=== PATIENT | female | born 1985 | race Hispanic/Latino ===

== ENCOUNTER 2018-06-17 17:57 | Emergency (ER) | payer SELFPAY ==
[2018-06-17] MEDS ORDERED: Adacel (T-DAP) 0.5 ML VIAL ONE (18:04)
[2018-06-17] MEDS ORDERED: Piperacillin/Tazobactam 3.375 GM VIAL ONE (18:04)
[2018-06-17] MEDS ORDERED: Ondansetron HCl/PF 4 MG/2 ML Vial ONE ×2 (18:04→18:10)
[2018-06-17] MEDS ORDERED: Ketamine 50 MG/ML VIAL ONE (18:16)
[2018-06-17] MEDS ORDERED: Midazolam HCl 2 mg/2 ml Vial ONE (18:17)
[2018-06-17 18:25] LABS: Hemoglobin 10.2 g/dL (12.0-16.0); Mean Corpuscular HGB CONC 35.4 g/dL (32.0-36.0); Mean Corpuscular Hemoglobin 25.1 pg (27.0-31.0); Mean Corpuscular Volume 70.9 fL (78.0-98.0); Mean Platelet Volume 7.5 fL (7.4-10.4); Platelet Count 368 thou/uL (130-400); RBC Distribution Width 13.4 % (11.5-14.5); Red Blood Cell (RBC) Count 4.07 mill/uL (4.20-5.40); White Blood Cell (WBC) Count 15.4 thou/uL (4.8-10.8)
[2018-06-17 18:26] LABS: ALT (SGPT) 9 U/L (8-55); AST (SGOT) 11 U/L (5-34); Albumin 4.3 g/dL (3.5-5.0); Alkaline Phosphatase 85 U/L (40-150); Anion Gap 18 mmol/L (10-20); BHCG - Serum Negative (NEGATIVE); BUN (Urea Nitrogen) 11 mg/dL (7.0-18.7); Bilirubin, Total 0.4 mg/dL (0.2-1.2); Calc. Creatinine Clearance 0 mL/min (70-130); Calcium 9.3 mg/dL (7.8-10.44); Carbon Dioxide 20 mmol/L (22-29); Chloride 107 mmol/L (98-107); Estimated GFR-MDRD Greater than 90; Globulin 3.9 g/dL (2.4-3.5); Glucose 163 mg/dL (70-105); Potassium 3.8 mmol/L (3.5-5.1); Pregs Control Background? CLEAR/WHITE (CLR/WHITE); Pregs Control Bar Appear? YES (CONTROL BAR); Protein, Total 8.2 g/dL (6.0-8.3); Sodium 141 mmol/L (136-145)
[2018-06-17 18:29] LABS: Eosinophils 3 % (0-10); Lymphocytes 36 % (21-51); MDiff Complete? YES; Microcytosis MODERATE=15-30 cells (100X) (0-5/hpf); Monocytes 6 % (0-10); Neutrophil 50 % (42-75); Reactive Lymphocytes 4 % (0-10)
--- NOTE | 2018-06-17 18:31 | CT ---
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 FINDINGS: There is nodular thickening seen right of midline involving anterior falx best seen on images 31, 30, 29, 28, 27 and 26, series 2 suspicious for a small subdural hematoma. Small amount of pneumocephalus is seen along the anterior aspect of the right frontal lobe. No underlying contusion is evident. Sep tony pellucidum and third ventricle are midline. There is exophthalmos involving the right globe with poor definition of the right orbital nerve suspicious for transection; however, extensive hematoma is seen within the retrobulbar space. There is prominent tension on the extraocular muscles. The right lacrimal gland has also been ejected from the orbital vault. There is extensive gas within the right orbit. IMPRESSION: 1. Small, anterior, parafalcine subdural hematoma. 2. Small amount of pneumocephalus involving the anterior right cranial fossa. 3. Traumatic exophthalmos of the right globe with the globe and the right lacrimal gland ejected from the orbital vault. The optic nerve is poorly seen and may be related to prominent retrobulbar h ematoma; however, optic nerve transection is not excluded. 4. Neurosurgical and ophthalmological consultation is recommended. Findings called to Dr. Clements at 6:20 p.m. on 06/17/18. Code CR POS: JOHN
--- NOTE | 2018-06-17 18:39 | CT ---
CT OF THE FACE WITHOUT CONTRAST: 06/17/18 INDICATION: Traumatic injury to the right eye when a cow stepped on the patient's face. COMPARISON: CT of the brain dated 06/17/18, 6:05 p.m. FINDINGS: There is a comminuted superior right orbital roof fracture with comminuted fracture fragments displac ed within the right anterior cranial fossa approximately 5 mm. Small amount of pneumocephalus is seen within the anterior aspect of the right cranial vault, best seen on image 35 and 36 of the coronal s eries. There is extensive gas in the right orbital vault. The globe has been ejected from the right o rbit as well as the right lacrimal gland. There is prominent tension on the extraocular muscles and v isualized portions of the optic nerve. The optic nerve within the retrobulbar space is not well seen and may be related to hematoma or possible optic nerve transection. The left orbit and left globe samuel ear intact. There is a small fracture involving the posterior superior aspect of the right ethmoid air cells on i mage 54 of the axial series and image 44 of the coronal series. The mandible appears intact. The pterygoid plates are intact. The zygomatic arches are intact. The na sophia bones are intact. The osseous nasal septum is intact. Left orbital rim and orbital walker are inta ct. The visualized aspects of the cervical spine is intact. IMPRESSION: Traumatic ejection of the right globe from the right orbit with extensive gas within the right orbita l space likely related to a nondisplaced fracture extending into the right posterior ethmoid air cell s. There is also comminuted fracture involving the right superior orbital roof with a small amount of pneumocephalus. The findings called to Dr. Clements. Please see the contact time on the CT of the brain dictated robert beatty. POS: [facility]
== END 2018-06-17 19:07 | disposition short-term general hospital (02) ==
LOC: BURERS 17:57
DX: S09.90XA Unspecified injury of head, initial encounter (principal); H44.5 Degenerated conditions of globe; H11.31 Conjunctival hemorrhage, right eye; S01.111A Laceration without foreign body of right eyelid and periocular area, initial encounter; S40.022A Contusion of left upper arm, initial encounter; Z23 Encounter for immunization; W55.29XA Other contact with cow, initial encounter
CPT/HCPCS: 70450; 70486; 80053; 84703; 85025; 90471; 90715; 96365; 96375; 99152; G0390; J2250; J2405; J2543

== ENCOUNTER → 2019-12-21 | Emergency (ER) | payer OTHER, SELFPAY | LOC: BURERS 14:53 | DX: T23.132A Burn of first degree of multiple left fingers (nail), not including thumb, initial encounter (principal); T31.0 Burns involving less than 10% of body surface; X16.XXXA Contact with hot heating appliances, radiators and pipes, initial encounter; Y99.0 Civilian activity done for income or pay | CPT/HCPCS: 99283 ==

== ENCOUNTER 2021-03-28 17:59 | Emergency (ER) | payer SELFPAY ==
[2021-03-29 01:15] LABS: SARS-CoV-2 PCR by NAA Not Detected (NotDetected)
[2021-03-29] MEDS ORDERED: Acetaminophen 325 MG TAB ONE (23:04)
[2021-03-29] MEDS ORDERED: Diazepam 10 MG/2 ML SYRINGE ONE (23:04)
== END 2021-03-28 18:31 | disposition home or self-care (01) ==
LOC: BURERS 17:59
DX: J06.9 Acute upper respiratory infection, unspecified (principal); Z20.822 Contact with and (suspected) exposure to COVID-19
CPT/HCPCS: 87635; 99283; J3360; U0003; U0005

== ENCOUNTER 2022-05-12 02:37 | Emergency (ER) | payer SELFPAY | END 2022-05-12 03:27 | disposition home or self-care (01) | LOC: BURERS 02:37 | DX: L50.0 Allergic urticaria (principal) | CPT/HCPCS: 99283 ==

== ENCOUNTER 2022-08-02 20:51 | Emergency (ER) | payer OTHER, SELFPAY ==
[2022-08-02 21:14] LABS: #Basophils 0.1 thou/uL (0.0-0.2); #Eosinphils 0.3 thou/uL (0.0-0.7); #Lymphocytes 3.2 thou/uL (1.20-3.40); #Monocytes 0.7 thou/uL (0.11-0.59); #Neutrophils 6.4 thou/uL (1.40-6.50); %Basophils 1.1 % (0.0-1.0); %Eosinophils 2.6 % (0.0-10.0); %Lymphocytes 30.1 % (21.0-51.0); %Monocytes 6.2 % (0.0-10.0); Hemoglobin 9.1 g/dL (12.0-16.0); Mean Corpuscular HGB CONC 32.8 g/dL (32.0-36.0); Mean Corpuscular Hemoglobin 24.4 pg (27.0-31.0); Mean Corpuscular Volume 74.2 fL (78.0-98.0); Mean Platelet Volume 8.3 fL (7.4-10.4); Platelet Count 344 thou/uL (130-400); Red Blood Cell (RBC) Count 3.73 mill/uL (4.20-5.40); White Blood Cell (WBC) Count 10.7 thou/uL (4.8-10.8)
[2022-08-02 21:25] LABS: ALT (SGPT) 14 U/L (8-55); AST (SGOT) 11 U/L (5-34); Alkaline Phosphatase 72 U/L (40-110); Anion Gap 12 mmol/L (10-20); BUN (Urea Nitrogen) 7 mg/dL (7.0-18.7); Bilirubin, Total 0.4 mg/dL (0.2-1.2); Calc. Creatinine Clearance 0 mL/min (70-130); Calcium 8.6 mg/dL (7.8-10.44); Carbon Dioxide 24 mmol/L (22-29); Chloride 105 mmol/L (98-107); Estimated GFR 120; Glucose 94 mg/dL (70-105); Potassium 3.6 mmol/L (3.5-5.1); Sodium 137 mmol/L (136-145)
[2022-08-02 21:28] LABS: Hypochromia SLIGHT = 6-15 cells (100X) (0-5/hpf); MDiff Complete? YES; Microcytosis SLIGHT = 6-15 cells (100X) (0-5/hpf); Platelet Morphology Comment Appears Adequate; Poikilocytosis SLIGHT = 6-15 cells (100X) (0-5/hpf)
== END 2022-08-02 22:05 | disposition home or self-care (01) ==
LOC: BURERS 20:51
DX: R07.89 Other chest pain (principal)
CPT/HCPCS: 71045; 80053; 84484; 85025; 93005

== ENCOUNTER 2024-10-11 21:16 | Emergency (ER) | payer SELFPAY ==
[2024-10-11] MEDS ORDERED: Bacitracin 1 PK ONE (21:40)
[2024-10-11] MEDS ORDERED: Acetaminophen 325 MG TAB ONE (21:40)
[2024-10-11] MEDS ORDERED: Ondansetron ODT 4 MG TAB ONE (21:40)
[2024-10-11] MEDS ORDERED: HYDROcodone/Acetaminophen 10/325 mg Tablet ONE (21:40)
[2024-10-11 22:12] LABS: Pregnancy Test - Urine (BHCG) Negative (Negative)
[2024-10-11 22:13] LABS: Pregu Control Bar Appear? YES (CONTROL BAR); Specific Gravity 1.032 (1.002-1.036)
[2024-10-11 22:14] LABS: Pregu Control Background? CLEAR/WHITE (CLR/WHITE)
== END 2024-10-11 22:00 | disposition home or self-care (01) ==
LOC: BURERS 21:16
DX: T26.02XA Burn of left eyelid and periocular area, initial encounter (principal); T26.01XA Burn of right eyelid and periocular area, initial encounter; X10.2XXA Contact with fats and cooking oils, initial encounter
CPT/HCPCS: 81025; 99283; Q0162